=== PATIENT | male | born 1940 | race Caucasian/White ===

== ENCOUNTER 2020-07-03 13:23 | Inpatient (IN) | payer MEDICARE ==
[2020-07-03] MEDS ORDERED: Dextrose 50% Abboject 50 ML SYRINGE SLOW IVP PRN (17:14)
[2020-07-03] MEDS ORDERED: hydrALAZINE 20 MG/ML VIAL SLOW IVP PRN (17:14)
[2020-07-03] MEDS ORDERED: Dextrose 5% in Water 1,000 ML IV PRN (17:14)
[2020-07-03] MEDS ORDERED: Ondansetron PF 4 MG/2 ML Vial IVP PRN (17:14)
[2020-07-03] MEDS ORDERED: traMADol HCl 50 MG TAB PO PRN (17:24)
[2020-07-03] MEDS ORDERED: Phytonadione 5 MG TAB PO SCH (17:30)
[2020-07-03] MEDS ORDERED: Cyclobenzaprine 10 MG TAB PO PRN (17:30)
[2020-07-03] MEDS: Acetaminophen 325 MG TAB PO SCH (17:52)
[2020-07-03] MEDS: traMADol HCl 50 MG TAB PO SCH (17:52)
[2020-07-03] MEDS ORDERED: Terazosin HCl 1 MG CAP PO SCH (21:00)
[2020-07-03] MEDS: Famotidine/PF 20 mg/2ml Vial SLOW IVP SCH (21:17)
[2020-07-03] MEDS: Midodrine HCl 5 MG TAB PO SCH (21:18)
[2020-07-03] MEDS: Gabapentin 300 MG CAP PO SCH (21:18)
[2020-07-03] MEDS: Carvedilol 3.125 MG TAB PO SCH (21:19)
[2020-07-03] MEDS: Senokot S 8.6-50 MG TAB PO SCH (21:19)
[2020-07-04] MEDS: traMADol HCl 50 MG TAB PO SCH ×4 (01:52→17:58)
[2020-07-04] MEDS: Acetaminophen 325 MG TAB PO SCH ×4 (01:52→17:57)
[2020-07-04 05:55] LABS: PTT 53.4 sec (22.9-36.1); Prothrombin Time 31.8 sec (12.0-14.7)
[2020-07-04 08:20] LABS: INR-International Normal Ratio 2.8; Prothrombin Time 30.1 sec (12.0-14.7)
[2020-07-04 08:21] LABS: PTT 50.1 sec (22.9-36.1)
[2020-07-04] MEDS ORDERED: CEFAZOLIN 2 GM in Premix Bag 1 BAG IVPB SCH (08:30)
[2020-07-04] MEDS ORDERED: Cyanocobalamin (Vitamin B-12) 1,000 MCG TAB PO SCH (09:00)
[2020-07-04] MEDS ORDERED: Ascorbic Acid 500 mg Chewable Tablet PO SCH (09:00)
[2020-07-04] MEDS ORDERED: Spironolactone 25 MG TAB PO SCH (09:00)
[2020-07-04] MEDS ORDERED: Atorvastatin Calcium 10 MG TAB PO SCH (09:00)
[2020-07-04] MEDS ORDERED: Furosemide 20 MG TAB PO SCH (09:00)
[2020-07-04] MEDS ORDERED: Digoxin 0.125 MG TAB PO SCH (09:00)
[2020-07-04] MEDS ORDERED: Cholecalciferol 1,000 UNITS (25 MCG) TAB PO SCH (09:00)
[2020-07-04] MEDS ORDERED: (Ubidecarenone [Co Q-10] 10 MG Capsule) PO SCH (09:00)
[2020-07-04] MEDS ORDERED: Folic Acid 1 MG TAB PO SCH (09:00)
[2020-07-04] MEDS: Senokot S 8.6-50 MG TAB PO SCH (09:53)
[2020-07-04] MEDS: Midodrine HCl 5 MG TAB PO SCH (09:56)
[2020-07-04] MEDS: Gabapentin 300 MG CAP PO SCH ×2 (09:56→17:05)
[2020-07-04] MEDS: Famotidine/PF 20 mg/2ml Vial SLOW IVP SCH (09:57)
[2020-07-04] MEDS: Carvedilol 3.125 MG TAB PO SCH (09:58)
[2020-07-04 11:23] VITALS: TEMP 98.2
[2020-07-04 12:32] LABS: Bilirubin Negative (Negative); Blood, Urine Negative (Negative); Clarity Clear (Clear); Glucose, Urine (Dipstick) Normal (Negative); Ketone, Urine Trace mg/dL (Negative); Leukocyte Negative Leu/uL (Negative); Nitrite Negative (Negative); Protein, Urine (Dipstick) 20 mg/dL (Neg-Trace); Specific Gravity, Urine 1.032 (1.002-1.036); Urobilinogen Normal mg/dL (Less than 2); pH, Urine 5.5 (5.0-9.0)
[2020-07-04] MEDS ORDERED: Sodium Bicarb 50 MEQ/50 ML Abboject 8.4% SYRINGE ONE ×3 (15:25→17:05)
[2020-07-04] MEDS ORDERED: EPINEPHrine 1 MG/10 ML Abboject SYRINGE ONE ×2 (15:25→16:25)
[2020-07-04] MEDS ORDERED: Amiodarone 150 MG/3 ML VIAL ONE (15:25)
[2020-07-04] MEDS ORDERED: Dextrose 50% Abboject 50 ML SYRINGE ONE (15:25)
[2020-07-04 16:10] LABS: #Eosinphils 0.1 thou/uL (0.0-0.7); #Monocytes 0.3 thou/uL (0.11-0.59); %Basophils 0.1 % (0.0-1.0); %Eosinophils 0.7 % (0.0-10.0); %Lymphocytes 38.9 % (21.0-51.0); %Monocytes 2.7 % (0.0-10.0); %Neutrophils 57.7 % (42.0-75.0); Hemoglobin 11.3 g/dL (14.0-18.0); Mean Corpuscular Hemoglobin 38.1 pg (27.0-31.0); RBC Distribution Width 13.1 % (11.5-14.5); Red Blood Cell (RBC) Count 2.97 mill/uL (4.70-6.10); White Blood Cell (WBC) Count 10.3 thou/uL (4.8-10.8)
[2020-07-04] MEDS ORDERED: Sodium Chloride 0.9% 1,000 ML IV SCH (16:15)
[2020-07-04 16:27] LABS: Anion Gap 22 mmol/L (10-20); BUN (Urea Nitrogen) 33 mg/dL (8.4-25.7); Calc. Creatinine Clearance 46 mL/min (70-130); Carbon Dioxide 15 mmol/L (23-31); Chloride 109 mmol/L (98-107); Glucose 347 mg/dL (83-110); Magnesium 2.4 mg/dL (1.6-2.6); Phosphorus 8.3 mg/dL (2.3-4.7); Potassium 3.9 mmol/L (3.5-5.1); Sodium 142 mmol/L (136-145)
[2020-07-04] MEDS ORDERED: Dronabinol 2.5 MG CAP PO SCH (16:30)
[2020-07-04 16:32] LABS: MDiff Complete? YES; Macrocytosis SLIGHT = 6-15 cells (100X) (0-5/hpf); Mean Platelet Volume 9.3 fL (7.4-10.4); Platelet Count 115 thou/uL (130-400); Platelet Morphology Comment Appears Decreased; Polychromasia SLIGHT = 2-3 cells (100X) (0-2/hpf)
[2020-07-04 16:50] LABS: CKMB 4.8 ng/mL (0-6.6)
[2020-07-04 17:02] LABS: Lactic Acid 13.3 mmol/L (0.5-2.2)
[2020-07-04 17:03] LABS: Actual Bicarbonate (HCO3a) 14.8 mEq/L (22-28); Base Excess (BEa) -14.8 mEq/L (-2.0 to +3.0); Calcium, Ionized (arterial) 1.24 mmol/L (1.12-1.30); Carboxyhemoglobin (COHb) 0.8 gm% (0.0-3.0); Hemoglobin (Hb) 11.8 g/dL (14.0-18.0); Potassium - ABG Lab 3.94 mmol/L (3.70-5.30)
[2020-07-04 17:56] LABS: Puncture Site Arterial Line; pH, Arterial 7.09 (7.35-7.45)
[2020-07-04] MEDS ORDERED: Sodium Bicarb 50 MEQ/50 ML Abboject 8.4% SYRINGE IVP SCH (18:15)
[2020-07-04 18:24] VITALS: BP 61/33
[2020-07-04] MEDS ORDERED: EPINEPHrine 4 MG in Dextrose 5% in Water 250 ML IVPB SCH (19:15)
[2020-07-04] MEDS ORDERED: Morphine CADD 100 ML IVPB SCH (20:15)
[2020-07-04] MEDS ORDERED: Morphine 2 MG/ML VIAL SLOW IVP PRN (20:23)
[2020-07-04] MEDS: Morphine 2 MG/ML VIAL SLOW IVP PRN ×2 (20:35→21:00)
== END 2020-07-04 21:07 | disposition expired | DRG 535 ==
LOC: SURG A 15:04 → CCU 07-04 16:10
PROVIDERS: ADMIT Surgery; ATTEND Surgery
PROC: 02HV33Z Insertion of Infusion Device into Superior Vena Cava, Percutaneous Approach (ICD-10-PCS; principal; 2020-07-04)
PROC: 04HY32Z Insertion of Monitoring Device into Lower Artery, Percutaneous Approach (ICD-10-PCS; 2020-07-04)
PROC: 5A12012 Performance of Cardiac Output, Single, Manual (ICD-10-PCS; 2020-07-04)
PROC: 5A2204Z Restoration of Cardiac Rhythm, Single (ICD-10-PCS; 2020-07-04)
PROC: 3E033XZ Introduction of Vasopressor into Peripheral Vein, Percutaneous Approach (ICD-10-PCS; 2020-07-04)
PROC: 0BH17EZ Insertion of Endotracheal Airway into Trachea, Via Natural or Artificial Opening (ICD-10-PCS; 2020-07-04)
PROC: 5A1935Z Respiratory Ventilation, Less than 24 Consecutive Hours (ICD-10-PCS; 2020-07-04)
PROC: 4A133B1 Monitoring of Arterial Pressure, Peripheral, Percutaneous Approach (ICD-10-PCS; 2020-07-04)
PROC: 4A133J1 Monitoring of Arterial Pulse, Peripheral, Percutaneous Approach (ICD-10-PCS; 2020-07-04)
DX: S72.012A Unspecified intracapsular fracture of left femur, initial encounter for closed fracture (principal); J96.00 Acute respiratory failure, unspecified whether with hypoxia or hypercapnia; I50.22 Chronic systolic (congestive) heart failure; E87.2 Acidosis; N17.9 Acute kidney failure, unspecified; R57.0 Cardiogenic shock; I46.2 Cardiac arrest due to underlying cardiac condition; I49.01 Ventricular fibrillation; I11.0 Hypertensive heart disease with heart failure; I48.91 Unspecified atrial fibrillation; I25.10 Atherosclerotic heart disease of native coronary artery without angina pectoris; E78.00 Pure hypercholesterolemia, unspecified; E87.6 Hypokalemia; R73.9 Hyperglycemia, unspecified; Z95.0 Presence of cardiac pacemaker; Z95.1 Presence of aortocoronary bypass graft; Z95.5 Presence of coronary angioplasty implant and graft; Z79.01 Long term (current) use of anticoagulants; Z79.82 Long term (current) use of aspirin; Z79.899 Other long term (current) drug therapy; Z87.891 Personal history of nicotine dependence; Z20.822 Contact with and (suspected) exposure to COVID-19; W18.30XA Fall on same level, unspecified, initial encounter; I95.9 Hypotension, unspecified
CPT/HCPCS: 0240U; 36415; 70450; 71045; 72170; 80048; 80053; 81003; 82533; 82553; 82805; 83605; 83735; 84100; 84484; 85025; 85610; 85730; 87086; 93005; 93010; 93306; 94002; J0171; J0282; J1940; J2270; J3010; J7070; S0028